=== PATIENT | male | born 1990 | race Caucasian/White ===

== ENCOUNTER 2021-05-19 20:13 | Inpatient (IN) | payer OTHER ==
[2021-05-19 20:22] VITALS: BMI 30.8
[2021-05-19] MEDS ORDERED: ACETAMINOPHEN 1000 MG/100 ML BAG IVPB ONE (20:56)
[2021-05-19] MEDS ORDERED: SODIUM CHLORIDE 0.9% 1000 ML INFUS.BAG IV ONE (20:56)
[2021-05-19] MEDS ORDERED: ACETAMINOPHEN INJECTION 100 ML IVPB ONE (21:45)
[2021-05-19] MEDS ORDERED: PIPERACILLIN/TAZOB 3.375 GM 3.375 GM in DEXTROSE 5%-WATER - 50 ML IVPB ONE (22:08)
[2021-05-19 22:28] LABS: BASO % 0.3 % (0-2.0); EOS % 0.9 % (0-4.5); HEMATOCRIT 46.3 % (35.4-49); HEMOGLOBIN 16.3 GM/dL (11.7-16.9); LYMPH % 12.1 % (8-40); MCH 32.3 pg (25.7-33.7); MCHC 35.2 g/dl (32.0-35.9); MEAN CELL VOLUME 91.6 fl (80-96); MEAN PLT VOLUME 7.1 fl (7.5-11.1); MONO % 6.5 % (3.8-10.2); NEUT % 80.2 % (42.8-82.8); PLATELET COUNT 303 10^3/uL (134-434); RBC 5.05 M/mm3 (4.00-5.60); RDW 12.7 % (11.9-15.9); WHITE BLOOD COUNT 12.1 K/mm3 (4.0-10.0)
[2021-05-19] MEDS ORDERED: PIPERACILLIN/TAZOB 3.375 GM 3.375 GM/50 ML BAG IVPB ONE (22:35)
[2021-05-19 22:37] LABS: INR 1.23 (0.83-1.09); PROTHROMBIN TIME (PATIENT) 14.2 SEC (9.7-13.0)
[2021-05-19 22:39] LABS: ACTIVATED PTT 28.4 SECONDS (25.2-36.5)
[2021-05-19 23:00] LABS: CALCIUM 9.2 mg/dL (8.5-10.1)
[2021-05-19 23:01] LABS: ALBUMIN 4.4 g/dl (3.4-5.0); BLOOD UREA NITROGEN 12.6 mg/dL (7-18)
[2021-05-19 23:04] LABS: CREATININE 0.9 mg/dL (0.55-1.3)
[2021-05-19 23:05] LABS: BILIRUBIN,TOTAL 0.6 mg/dL (0.2-1)
[2021-05-19 23:06] LABS: TOT PROT 7.7 g/dl (6.4-8.2)
[2021-05-19 23:19] LABS: URINE APPEARANCE CLEAR; URINE BILIRUBIN NEGATIVE (NEGATIVE); URINE COLOR YELLOW; URINE GLUCOSE (UA) NEGATIVE (NEGATIVE); URINE KETONE TRACE (NEGATIVE); URINE LEUK ESTERASE NEGATIVE (NEGATIVE); URINE NITRITE NEGATIVE (NEGATIVE); URINE PROTEIN NEGATIVE (NEGATIVE)
[2021-05-20] MEDS ORDERED: ACETAMINOPHEN 325 MG TABLET (FP) PO PRN (02:54)
[2021-05-20] MEDS ORDERED: PIPERACILLIN/TAZOB 3.375 GM 3.375 GM/50 ML BAG IVPB ONE (03:24)
[2021-05-20] MEDS: PIPERACILLIN/TAZOB 3.375 GM 3.375 GM in DEXTROSE 5%-WATER - 50 ML IVPB SCH ×4 (04:11→21:43)
[2021-05-20] MEDS: SODIUM CHLORIDE 1,000 ML IV SCH ×2 (04:11→16:35)
[2021-05-20] MEDS ORDERED: PIPERACILLIN/TAZOBACTAM 3.375 GM VIAL IVPB ONE ×3 (09:21→21:18)
[2021-05-20] MEDS ORDERED: DEXTROSE 5%-WATER - 50 ML IVPB ONE ×3 (09:22→21:18)
[2021-05-20 10:05] LABS: BASO % 0.3 % (0-2.0); HEMATOCRIT 42.8 % (35.4-49); HEMOGLOBIN 14.8 GM/dL (11.7-16.9); LYMPH % 15.8 % (8-40); MCHC 34.6 g/dl (32.0-35.9); MEAN CELL VOLUME 92.5 fl (80-96); MEAN PLT VOLUME 7.6 fl (7.5-11.1); MONO % 6.8 % (3.8-10.2); NEUT % 76.1 % (42.8-82.8); PLATELET COUNT 266 10^3/uL (134-434); RBC 4.63 M/mm3 (4.00-5.60); WHITE BLOOD COUNT 10.6 K/mm3 (4.0-10.0)
[2021-05-20 10:07] LABS: INR 1.28 (0.83-1.09); PROTHROMBIN TIME (PATIENT) 14.7 SEC (9.7-13.0)
[2021-05-20 10:10] LABS: ACTIVATED PTT 28.6 SECONDS (25.2-36.5)
[2021-05-20 10:32] LABS: CALCIUM 8.4 mg/dL (8.5-10.1)
[2021-05-20 10:33] LABS: BLOOD UREA NITROGEN 10.5 mg/dL (7-18)
[2021-05-20 10:36] LABS: CREATININE 0.7 mg/dL (0.55-1.3)
[2021-05-21] MEDS ORDERED: DEXTROSE 5%-WATER - 50 ML IVPB ONE ×3 (02:58→15:02)
[2021-05-21] MEDS ORDERED: PIPERACILLIN/TAZOBACTAM 3.375 GM VIAL IVPB ONE ×3 (02:58→15:01)
[2021-05-21] MEDS: PIPERACILLIN/TAZOB 3.375 GM 3.375 GM in DEXTROSE 5%-WATER - 50 ML IVPB SCH ×3 (03:14→15:06)
[2021-05-21] MEDS: SODIUM CHLORIDE 1,000 ML IV SCH (03:15)
[2021-05-21 10:14] LABS: BASO % 0.3 % (0-2.0); EOS % 1.8 % (0-4.5); HEMATOCRIT 42.1 % (35.4-49); HEMOGLOBIN 14.9 GM/dL (11.7-16.9); LYMPH % 15.2 % (8-40); MCH 32.8 pg (25.7-33.7); MCHC 35.5 g/dl (32.0-35.9); MEAN CELL VOLUME 92.5 fl (80-96); MEAN PLT VOLUME 7.2 fl (7.5-11.1); MONO % 6.8 % (3.8-10.2); NEUT % 75.9 % (42.8-82.8); PLATELET COUNT 242 10^3/uL (134-434); RBC 4.55 M/mm3 (4.00-5.60); RDW 12.7 % (11.9-15.9); WHITE BLOOD COUNT 10.6 K/mm3 (4.0-10.0)
[2021-05-21 10:47] LABS: CALCIUM 8.7 mg/dL (8.5-10.1)
[2021-05-21 10:48] LABS: ALBUMIN 3.8 g/dl (3.4-5.0); BLOOD UREA NITROGEN 7.3 mg/dL (7-18); MAGNESIUM 2.1 mg/dL (1.8-2.4)
[2021-05-21 10:51] LABS: CREATININE 0.7 mg/dL (0.55-1.3); PHOSPHOROUS 2.9 mg/dL (2.5-4.9)
[2021-05-21 10:53] LABS: BILIRUBIN,TOTAL 1.2 mg/dL (0.2-1); TOT PROT 6.6 g/dl (6.4-8.2)
[2021-05-21 14:11] VITALS: BP 146/92; PULSE 90; TEMP 99.1
== END 2021-05-21 17:52 | disposition home or self-care (01) | DRG 395 ==
LOC: JER 20:13 → J5S 05-20 04:23 → JER 05-20 04:42
PROVIDERS: ADMIT Internal Medicine; ATTEND Internal Medicine
DX: K61.1 Rectal abscess (principal); E66.9 Obesity, unspecified; Z68.30 Body mass index [BMI] 30.0-30.9, adult; R03.0 Elevated blood-pressure reading, without diagnosis of hypertension; Z71.3 Dietary counseling and surveillance
CPT/HCPCS: 36415; 71045-TC-FY; 74177-TC; 80048; 80053; 81003; 83605; 83735; 84100; 85025; 85610; 85730; 86850; 86900; 86901; 87040; 87086; 87804; 93005; 93010; 99285-25; C9803; J0131; Q9967; U0003; U0005

== ENCOUNTER 2022-01-01 19:10 | Emergency (ER) | payer OTHER ==
[2022-01-01 19:59] VITALS: BP 132/93; PULSE 93; RESP 20; TEMP 98.1; BMI 30.8
== END 2022-01-01 22:00 | disposition home or self-care (01) ==
LOC: JER 19:10
DX: Z20.822 Contact with and (suspected) exposure to COVID-19 (principal)
CPT/HCPCS: 99283-25; C9803-CS; U0003; U0005

== ENCOUNTER 2022-01-27 21:55 | Emergency (ER) | payer OTHER ==
[2022-01-27 22:15] VITALS: BMI 30.8
[2022-01-28] MEDS ORDERED: ACETAMINOPHEN 500 MG TABLET (FP) PO ONE (00:22)
[2022-01-28] MEDS ORDERED: ACETAMINOPHEN 1000 MG/100 ML BAG IVPB ONE (00:26)
[2022-01-28] MEDS ORDERED: morphine CARPU-JECT 4 MG/1 ML DISP.SYRIN IVPUSH ONE (00:26)
[2022-01-28] MEDS ORDERED: ACETAMINOPHEN INJECTION 100 ML IVPB ONE (01:07)
[2022-01-28] MEDS ORDERED: morphine SULFATE 4 MG/ML VIAL ONE (01:07)
[2022-01-28 01:11] VITALS: BP 135/89; PULSE 89; RESP 20; TEMP 98.7
[2022-01-28 01:24] LABS: BASO % 0.7 % (0-2.0); EOS % 0.7 % (0-4.5); HEMATOCRIT 42.8 % (35.4-49); HEMOGLOBIN 14.9 GM/dL (11.7-16.9); LYMPH % 15.9 % (8-40); MCH 31.9 pg (25.7-33.7); MCHC 34.8 g/dl (32.0-35.9); MEAN CELL VOLUME 91.6 fl (80-96); MEAN PLT VOLUME 6.6 fl (7.5-11.1); NEUT % 73.7 % (42.8-82.8); PLATELET COUNT 307 10^3/uL (134-434); RBC 4.68 M/mm3 (4.00-5.60); RDW 12.9 % (11.9-15.9); WHITE BLOOD COUNT 11.9 K/mm3 (4.0-10.0)
[2022-01-28 01:33] LABS: INR 1.22 (0.83-1.09); PROTHROMBIN TIME (PATIENT) 14.1 SEC (9.7-13.0)
[2022-01-28 01:54] LABS: CALCIUM 8.9 mg/dL (8.5-10.1)
[2022-01-28 01:55] LABS: ALBUMIN 3.6 g/dl (3.4-5.0); BLOOD UREA NITROGEN 13.6 mg/dL (7-18)
[2022-01-28 01:58] LABS: CREATININE 0.8 mg/dL (0.55-1.3)
[2022-01-28 01:59] LABS: BILIRUBIN,TOTAL 0.5 mg/dL (0.2-1)
[2022-01-28 02:00] LABS: TOT PROT 6.9 g/dl (6.4-8.2)
[2022-01-28] MEDS ORDERED: AMPICILLIN NA/SULBACTAM NA 3 GM in SODIUM CHLORIDE 100 ML IVPB ONE (02:00)
== END 2022-01-28 03:45 | disposition home or self-care (01) ==
LOC: JERFT 21:55 → JER 21:55
DX: K61.1 Rectal abscess (principal)
CPT/HCPCS: 36415; 72193-TC; 80053; 85025; 85610; 86850; 86900; 86901; 99284-25; Q9967

== ENCOUNTER 2022-01-30 06:38 | Day surgery (SDC) | payer OTHER ==
[2022-01-29 11:33] VITALS: BMI 30.4
[2022-01-30] MEDS ORDERED: MIDAZOLAM HCL 2 MG/2 ML SINGLE DOSE VIAL ONE ×2 (10:09→10:42)
[2022-01-30] MEDS ORDERED: ceFAZolin SODIUM 1 GM VIAL IVPB ONE (10:38)
[2022-01-30] MEDS ORDERED: oxyCODONE HCL 5 MG TABLET PO PRN (11:56)
[2022-01-30] MEDS ORDERED: morphine CARPU-JECT 4 MG/1 ML DISP.SYRIN IVPUSH PRN (11:58)
[2022-01-30] MEDS ORDERED: SODIUM CHLORIDE 1,000 ML IV SCH (12:00)
[2022-01-30] MEDS ORDERED: POLYETHYLENE GLYCOL (HEALTHYLAX) 3350 17 GM PACKET PO PRN (12:22)
[2022-01-30] MEDS ORDERED: ONDANSETRON 4 MG/2 ML VIAL IVPUSH PRN (14:19)
[2022-01-30] MEDS: KETOROLAC TROMETHAMINE 30 MG/1 ML VIAL IVPUSH SCH (18:24)
[2022-01-30] MEDS: ACETAMINOPHEN 500 MG TABLET (FP) PO SCH (21:33)
[2022-01-30] MEDS: DOCUSATE SODIUM 100 MG CAPSULE (FP) PO SCH (21:33)
[2022-01-31] MEDS: KETOROLAC TROMETHAMINE 30 MG/1 ML VIAL IVPUSH SCH ×2 (02:35→10:03)
[2022-01-31] MEDS: ACETAMINOPHEN 500 MG TABLET (FP) PO SCH ×2 (02:35→10:04)
[2022-01-31] MEDS: DOCUSATE SODIUM 100 MG CAPSULE (FP) PO SCH (10:04)
[2022-01-31 10:28] LABS: BASO % 0.7 % (0-2.0); EOS % 4.8 % (0-4.5); HEMATOCRIT 38.4 % (35.4-49); HEMOGLOBIN 13.6 GM/dL (11.7-16.9); LYMPH % 23.2 % (8-40); MCH 32.5 pg (25.7-33.7); MCHC 35.3 g/dl (32.0-35.9); MEAN CELL VOLUME 92.3 fl (80-96); MEAN PLT VOLUME 7.1 fl (7.5-11.1); MONO % 9.4 % (3.8-10.2); NEUT % 61.9 % (42.8-82.8); PLATELET COUNT 242 10^3/uL (134-434); RBC 4.17 M/mm3 (4.00-5.60); RDW 12.4 % (11.9-15.9); WHITE BLOOD COUNT 6.4 K/mm3 (4.0-10.0)
[2022-01-31 10:52] LABS: BLOOD UREA NITROGEN 13.2 mg/dL (7-18); CALCIUM 8.2 mg/dL (8.5-10.1)
[2022-01-31 10:55] LABS: CREATININE 0.6 mg/dL (0.55-1.3)
[2022-01-31 14:41] VITALS: BP 142/83; PULSE 82; RESP 18; TEMP 97.4
== END 2022-01-31 15:00 | disposition home or self-care (01) ==
LOC: JASUSAT 06:38 → J8W 14:33 → JASUSAT 01-31 15:00
PROVIDERS: ATTEND Surgery
PROC: 0D9P0ZX Drainage of Rectum, Open Approach, Diagnostic (ICD-10-PCS; principal; 2022-01-30 10:00)
PROC: 0DJD8ZZ Inspection of Lower Intestinal Tract, Via Natural or Artificial Opening Endoscopic (ICD-10-PCS; 2022-01-30 10:00)
DX: K61.1 Rectal abscess (principal)
CPT/HCPCS: 36415; 80048; 85025; 87070; 87076; 87186; 87205; 94760